=== PATIENT | female | born 1985 | race Caucasian/White ===

== ENCOUNTER 2017-07-17 10:00 | Outpatient (RCR) | payer OTHER, SELFPAY | END 2017-07-17 10:01 | LOC: DC 10:00 | PROVIDERS: Family Provider Family Medicine; PCP Family Medicine; Visit Provider Obstetrics & Gynecology | DX: O24.410 Gestational diabetes mellitus in pregnancy, diet controlled (principal); Z71.3 Dietary counseling and surveillance | CPT/HCPCS: 97802; G0108 ==

== ENCOUNTER 2017-07-26 11:05 | Outpatient (CLI) | payer OTHER, SELFPAY ==
[2017-07-26 11:14] VITALS: BMI 40.5
[2017-07-26 11:52] LABS: Hematocrit 35.5 % (37-47); Hemoglobin 11.9 g/dl (12.0-15.0); Mean Corp Hgb Conc 33.5 g/gl (32-36); Mean Corpuscular Hgb 30.1 pg (27.0-32.0); Mean Corpuscular Volume 89.9 fL (81-99); Mean Platelet Vol. 10.2 fl (6.2-12.0); Platelet Count 145 K/mm3 (150-450); RBC Distribution Width CV 14.6 % (11.6-14.6); RBC Distribution Width SD 47.8 fl (35.1-43.9); Red Blood Count 3.95 M/mm3 (4.2-5.4); Scan Indicated on CBC? Y/N NO; White Blood Count 8.8 K/mm3 (4.4-11.0)
[2017-07-26 11:55] LABS: International Normalized Ratio 1.1; Prothrombin Time (Protime)PT. 14.3 SECONDS (11.7-14.9)
[2017-07-26 11:56] LABS: Partial Thromboplast Time 28.8 Seconds (24.1-36.2)
[2017-07-26 12:08] LABS: AST(SGOT) 15 U/L (15-37); Alanine Aminotransfer ALT/SGPT 12 U/L (13-56); Creatinine, Serum 0.72 mg/dL (0.55-1.02); EST Glomerular Filtration Rate 101 mL/min (>60); Est Glom Filt Rate - Afr Amer 122 mL/min (>60); Estimated Creatinine Clearance 105.98 ml/min; Uric Acid 4.5 mg/dL (2.6-6.0)
[2017-07-26 12:09] LABS: Protein, Urine (Random) 19.2 mg/dL (<11.9); Protein:Creat Ratio 132 mg/g CRE (0-200)
[2017-07-26] MEDS: Labetalol 100 MG Tablet PO ×2 (13:39→21:20)
[2017-07-26] MEDS: Betamethasone/Betamethasone 30 MG/5 ML Vial 12 MG IM (13:39)
[2017-07-26 16:51] LABS: Bedside Glucose 145 mg/dL (70-110)
[2017-07-26 16:53] LABS: Group B Strep DNA By PCR Negative (Negative)
[2017-07-26 16:55] LABS: Internal Control PASS; Probe Check PASS; Specimen Processing Control PASS
--- NOTE | 2017-07-26 18:19 | PCM.HP.OB ---
History Date of Admission: 07/26/17 Final [place]: 09/17/17 Final [place] Source: US <20 weeks Gestational age: 32 Weeks and 3 Days History of this : Initiated care @ 8 weeks x 7 visits Elevated blood pressures from baseline noted at last visit on 07/22/17, patient reports continued elevated blood pressures today 130-140s/80-90s Patient antepartum course has been complicated by gestational diabetes that was unable to be controlled by diet alone. Patient recently prescribed NPH insulin q HS to help control blood sugars. Pertinent Past Medical History: Obesity affecting Otherwise history noncontributory Allergies No Known Allergies Allergy (Verified 07/26/17 11:30) Current Medications Aspirin (Aspirin, Baby) 81 mg PO DAILYCM ALBERTO Cholecalciferol (Vitamin D) 2,000 unit PO HS ALBERTO Folic Acid (Folic Acid) 0 mg PO HS [facility] Insulin Human NPH (Humulin N (Bkc)) 10 units SC HS ALBERTO Labetalol HCl (Trandate) 100 mg PO TID [facility] Last Admin: 07/26/17 13:39 Dose: 100 mg Smoking Status: Never smoker Alcohol: None Drug Use: none Number of Fetus(es): 1 Review of Systems Constitutional: Denies: Chills, Fever, Weight Change Eyes: Denies: Vision Change HEENT: Denies: Head Aches, Sinus Congestion, Sinus Drainage Cardiovascular: Denies: Chest Pain, Palpitations Respiratory: Denies: Shortness of breath at rest Gastrointestinal: Denies: Abdominal Pain, Nausea, Vomiting Genitourinary: Denies: Dysuria, Frequency, Urgency Gynecological: Denies: Vaginal bleeding, Vaginal discharge Musculoskeletal: Denies: Joint Pain, Joint Tenderness Skin: Denies: Rash, Wounds Neurological: Denies: Numbness, Tingling, Focal weakness Psychiatric: Denies: Anxiety, Depression, Homicidal Ideations, Suicidal Ideations Hematologic/ Lymphatic: Denies: Easy Bruising, Easy Bleeding Physical Exam Vitals: Initial blood pressure 150/97, 133/100, then most blood pressures initially in 130-140/80-90 range Otherwise VSS, Afebrile Reactive, Category I FHT, no contractions noted on monitor General: Alert, Oriented x3, No apparent distress Cardiovascular: Regular rate, Regular Rhythm Lungs: Clear to auscultation, Normal air movement Abdomen: Soft, Non Tender, Gravid, Appropriate for Gestational Age Extremities:: No edema Estimated gestational size: Appropriate for gestational size Presentation: Cephalic - SVE deferred Assessment/Plan 32 y/o @ 32+ weeks, Gestational Hypertension, R/O Pre-eclampsia - negative pre-eclampsia work-up P: 1) Consult with Dr. Krishna RIVAS re: comanagement of this patient. Recommendation for antepartum admission to evaluate blood pressures overnight, administer steroids, start Labetalol 100mg PO TID now. 2) Anticipate discharge to home tomorrow after 2nd steroid dose and if blood pressures are well controlled on Labetalol medication. Nori Avilez CNM
--- NOTE | 2017-07-26 18:29 | HP.PCM_ITS ---
History Date of Admission: 07/26/17 Final [place]: 09/17/17 Final [place] Source: US <20 weeks Gestational age: 32 Weeks and 3 Days History of this : Initiated care @ 8 weeks x 7 visits Elevated blood pressures from baseline noted at last visit on 07/22/17, patient reports continued elevated blood pressures today 130-140s/80-90s Patient antepartum course has been complicated by gestational diabetes that was unable to be controlled by diet alone. Patient recently prescribed NPH insulin q HS to help control blood sugars. Pertinent Past Medical History: Obesity affecting Otherwise history noncontributory Allergies No Known Allergies Allergy (Verified 07/26/17 11:30) Current Medications Aspirin (Aspirin, Baby) 81 mg PO DAILYCM ALBERTO Cholecalciferol (Vitamin D) 2,000 unit PO HS ALBERTO Folic Acid (Folic Acid) 0 mg PO HS [facility] Insulin Human NPH (Humulin N (Bkc)) 10 units SC HS ALBERTO Labetalol HCl (Trandate) 100 mg PO TID [facility] Last Admin: 07/26/17 13:39 Dose: 100 mg Smoking Status: Never smoker Alcohol: None Drug Use: none Number of Fetus(es): 1 Review of Systems Constitutional: Denies: Chills, Fever, Weight Change Eyes: Denies: Vision Change HEENT: Denies: Head Aches, Sinus Congestion, Sinus Drainage Cardiovascular: Denies: Chest Pain, Palpitations Respiratory: Denies: Shortness of breath at rest Gastrointestinal: Denies: Abdominal Pain, Nausea, Vomiting Genitourinary: Denies: Dysuria, Frequency, Urgency Gynecological: Denies: Vaginal bleeding, Vaginal discharge Musculoskeletal: Denies: Joint Pain, Joint Tenderness Skin: Denies: Rash, Wounds Neurological: Denies: Numbness, Tingling, Focal weakness Psychiatric: Denies: Anxiety, Depression, Homicidal Ideations, Suicidal Ideations Hematologic/ Lymphatic: Denies: Easy Bruising, Easy Bleeding Physical Exam Vitals: Initial blood pressure 150/97, 133/100, then most blood pressures initially in 130-140/80-90 range Otherwise VSS, Afebrile Reactive, Category I FHT, no contractions noted on monitor General: Alert, Oriented x3, No apparent distress Cardiovascular: Regular rate, Regular Rhythm Lungs: Clear to auscultation, Normal air movement Abdomen: Soft, Non Tender, Gravid, Appropriate for Gestational Age Extremities:: No edema Estimated gestational size: Appropriate for gestational size Presentation: Cephalic - SVE deferred Assessment/Plan 32 y/o @ 32+ weeks, Gestational Hypertension, R/O Pre-eclampsia - negative pre-eclampsia work-up P: 1) Consult with Dr. Krishna RIVAS re: comanagement of this patient. Recommendation for antepartum admission to evaluate blood pressures overnight, administer steroids, start Labetalol 100mg PO TID now. 2) Anticipate discharge to home tomorrow after 2nd steroid dose and if blood pressures are well controlled on Labetalol medication. Nori Avilez CNM
[2017-07-26 19:55] LABS: Bedside Glucose 193 mg/dL (70-110)
--- NOTE | 2017-07-26 20:40 | PCM.PN.BLA ---
Progress Note Patient denies RICE, visual changes or epigastric pain. Good FM/ Reviewed w/ her reasoning for trt of bp and monitoring for preeclampsia and severe symptoms Will cover elevated bs w/ regular insulin and increase NPH in short term has US and f/u for next week finish BMZ course Seen and examine and agree H&P
[2017-07-26] MEDS: Aspirin 81 MG TAB.CHEW PO (21:20)
[2017-07-26] MEDS: Insulin NPH Human 100 UNITS/ML PEN 14 UNITS SC (21:23)
[2017-07-26 23:36] LABS: Bedside Glucose 124 mg/dL (70-110)
[2017-07-27] MEDS: Labetalol 100 MG Tablet PO ×2 (05:30→13:39)
[2017-07-27 05:55] LABS: Bedside Glucose 128 mg/dL (70-110)
[2017-07-27 06:04] LABS: Hematocrit 33.9 % (37-47); Hemoglobin 11.4 g/dl (12.0-15.0); Mean Corp Hgb Conc 33.6 g/gl (32-36); Mean Corpuscular Hgb 30.4 pg (27.0-32.0); Mean Corpuscular Volume 90.4 fL (81-99); Mean Platelet Vol. 9.5 fl (6.2-12.0); Platelet Count 140 K/mm3 (150-450); RBC Distribution Width CV 14.6 % (11.6-14.6); RBC Distribution Width SD 47.9 fl (35.1-43.9); Red Blood Count 3.75 M/mm3 (4.2-5.4); White Blood Count 9.7 K/mm3 (4.4-11.0)
[2017-07-27 06:11] LABS: Scan Indicated on CBC? Y/N NO
[2017-07-27] MEDS: Insulin NPH Human 100 UNITS/ML PEN 6 UNITS SC (09:30)
--- NOTE | 2017-07-27 10:11 | PCM.PN.BLA ---
Progress Note S: Patient sitting up in bed at this time. Denies any issues or complaints. Denies RICE, scotoma or RUQ. Second steroid injection dose ordered for patient to receive in anticipation of her discharge home later today. O: BP stable - 124/74 last checked, normotensive through the night Fasting blood sugar = 128 this morning, 6 units R and 6 units NPH insulin administered per orders from Dr. Keller A+O x 3, NAD. PERRLA, EOMs intact No abdominal tenderness to palpation +2/4 reflexes in LE, no edema, no clonus noted FHT baseline 130, moderate variability, +accels, no decels Ctx irregular q5-10 minutes on tocometer, not palpable and patient does not feel any ctx SVE deferred A: 32 y/o @ 32+ weeks, GHTN, GDMA2 P: 1) Normotensive blood pressures, anticipate discharge to home on labetalol medication 2) Blood sugars slightly elevated this hospitalization likely secondary to celestone steroid shots - insulin being managed by Dr. Krishna RIVAS 3) 2nd dose Celestone due at 1339 4) Anticipate discharge to home today Nori Avilez CNM
[2017-07-27 10:21] LABS: Bedside Glucose 142 mg/dL (70-110)
--- NOTE | 2017-07-27 11:11 | PCM.PN.BLA ---
Progress Note Denies RICE, visual changes or epigastric pain. Good Fm. Minimal occas. edema PE- awake, alert, NAD, BP stable trace edema, 2+ DTRs, no clonus abdo- soft, nontender, gravid a/p 32 YOF @ 32 4/7 weeks gestation, gest HTN BP stable GDM A2- bs will trend a little high. D /w her management in short term. Call office or page physician promotion manager prn for persistent elevated bp or BS > 200 Second dose of BMZ today d/c home after that reviewed symptoms/signs of preeclampsia w/ severe features
--- NOTE | 2017-07-27 11:14 | PN_ITS ---
Progress Note Denies RICE, visual changes or epigastric pain. Good Fm. Minimal occas. edema PE- awake, alert, NAD, BP stable trace edema, 2+ DTRs, no clonus abdo- soft, nontender, gravid a/p 32 YOF @ 32 4/7 weeks gestation, gest HTN BP stable GDM A2- bs will trend a little high. D /w her management in short term. Call office or page physician client relationship manager prn for persistent elevated bp or BS > 200 Second dose of BMZ today d/c home after that reviewed symptoms/signs of preeclampsia w/ severe features
[2017-07-27] MEDS: Betamethasone/Betamethasone 30 MG/5 ML Vial 12 MG IM (13:38)
[2017-07-27 14:06] LABS: Bedside Glucose 113 mg/dL (70-110)
== END 2017-07-27 14:22 | disposition home or self-care (01) ==
LOC: WPOUT 11:13 → WP 07-28 12:27
PROVIDERS: Obstetrics & Gynecology; Family Provider Family Medicine; PCP Family Medicine; Visit Provider Advanced Practice Midwife
DX: O13.3 Gestational [pregnancy-induced] hypertension without significant proteinuria, third trimester (principal); O99.213 Obesity complicating pregnancy, third trimester; E66.9 Obesity, unspecified; O24.419 Gestational diabetes mellitus in pregnancy, unspecified control; Z3A.32 32 weeks gestation of pregnancy
CPT/HCPCS: 36415; 59025; 59050; 82565; 82570; 82962; 84156; 84450; 84460; 84550; 85027; 85610; 85730; 87081; 87653; 96372; 99218; G0378; J0702

== ENCOUNTER 2017-08-06 10:40 | Outpatient (CLI) | payer OTHER, SELFPAY ==
[2017-08-06 10:54] VITALS: BMI 39.5
[2017-08-06 11:30] LABS: Hematocrit 36.1 % (37-47); Hemoglobin 12.1 g/dl (12.0-15.0); Mean Corp Hgb Conc 33.5 g/gl (32-36); Mean Corpuscular Hgb 30.3 pg (27.0-32.0); Mean Corpuscular Volume 90.3 fL (81-99); Mean Platelet Vol. 9.2 fl (6.2-12.0); Platelet Count 164 K/mm3 (150-450); RBC Distribution Width CV 14.4 % (11.6-14.6); RBC Distribution Width SD 46.7 fl (35.1-43.9); Scan Indicated on CBC? Y/N NO; White Blood Count 9.3 K/mm3 (4.4-11.0)
[2017-08-06 11:33] LABS: Protein:Creat Ratio 214 mg/g CRE (0-200)
[2017-08-06 11:42] LABS: ALB/GLOB Ratio 0.7 RATIO (0.9-2.4); AST(SGOT) 11 U/L (15-37); Alanine Aminotransfer ALT/SGPT 13 U/L (13-56); Albumin, Serum 2.7 g/dL (3.2-5.0); Alkaline Phosphatase 100 U/L (45-117); Anion Gap 10 (5-15); BUN 12 mg/dL (7-18); BUN/Creat Ratio 19.5 RATIO (10-20); Calcium,Total 8.2 mg/dL (8.5-10.1); Chloride 110 mmol/L (98-107); Creatinine, Serum 0.62 mg/dL (0.55-1.02); EST Glomerular Filtration Rate 120 mL/min (>60); Est Glom Filt Rate - Afr Amer 145 mL/min (>60); Estimated Creatinine Clearance 123.08 ml/min; Globulin 3.8 g/dL (2.2-4.2); Glucose 106 mg/dL (74-106); Protein, Total 6.5 g/dL (6.4-8.2); Sodium Level 142 mmol/L (136-145)
--- NOTE | 2017-08-08 11:20 | OB.TRI.NOTE ---
History of Present Illness Date of Service: 08/06/17 Reason For Visit: [facility] Date of Service: 08/06/17 Final [place]: 09/17/17 Gestational age: 34 w 0 d History of Present Illness: 32 YOF seen by me in the office on 08/06 w/ known h/o gest HTN sent for eval for poss. preeclampsia. Home Medications Medication Instructions Recorded Aspirin, Baby 81 mg PO DAILY 07/26/17 Cholecalciferol (Vitamin D3) 2,000 unit PO DAILY 07/26/17 [Vitamin D3] Folic Acid 0.8 mg PO DAILY 07/26/17 Vitamins 1 tab PO DAILY 07/26/17 Insulin NPH Human Isophane 10 units SC QHS 08/06/17 [Novolin N] Labetalol 200 mg PO TID 08/06/17 Allergies No Known Allergies Allergy (Verified 08/06/17 10:55) NST - FHR Rate Baby A Baseline: 145 bpm Variability:: Moderate Accelerations:: 15 x 15 Decelerations:: None NST Reactive:: Yes FHR Category:: Category I Uterine Activity:: no ctxs Impression/Plan 32 YOF high risk primigravida at 34w 0 d gest HTN- bp well controlled on increased labetalol, she is to f/u in our office closely, kick counts. Call or return for symptoms/signs of preeclampsia GDM A2- controlled on current insulin dose d/c home w/ f/u in our office in 2 days or prn
--- NOTE | 2017-08-08 11:23 | OB.TRI.HP_ITS ---
History of Present Illness Date of Service: 08/06/17 Reason For Visit: [facility] Date of Service: 08/06/17 Final [place]: 09/17/17 Gestational age: 34 w 0 d History of Present Illness: 32 YOF seen by me in the office on 08/06 w/ known h/o gest HTN sent for eval for poss. preeclampsia. Home Medications Medication Instructions Recorded Aspirin, Baby 81 mg PO DAILY 07/26/17 Cholecalciferol (Vitamin D3) 2,000 unit PO DAILY 07/26/17 [Vitamin D3] Folic Acid 0.8 mg PO DAILY 07/26/17 Vitamins 1 tab PO DAILY 07/26/17 Insulin NPH Human Isophane 10 units SC QHS 08/06/17 [Novolin N] Labetalol 200 mg PO TID 08/06/17 Allergies No Known Allergies Allergy (Verified 08/06/17 10:55) NST - FHR Rate Baby A Baseline: 145 bpm Variability:: Moderate Accelerations:: 15 x 15 Decelerations:: None NST Reactive:: Yes FHR Category:: Category I Uterine Activity:: no ctxs Impression/Plan 32 YOF high risk primigravida at 34w 0 d gest HTN- bp well controlled on increased labetalol, she is to f/u in our office closely, kick counts. Call or return for symptoms/signs of preeclampsia GDM A2- controlled on current insulin dose d/c home w/ f/u in our office in 2 days or prn
== END 2017-08-06 12:15 | disposition home or self-care (01) ==
LOC: WPOUT 10:46 → WP 10:47
PROVIDERS: Family Provider Family Medicine; PCP Family Medicine; Visit Provider Obstetrics & Gynecology
DX: O13.3 Gestational [pregnancy-induced] hypertension without significant proteinuria, third trimester (principal); O24.414 Gestational diabetes mellitus in pregnancy, insulin controlled; Z3A.34 34 weeks gestation of pregnancy
CPT/HCPCS: 36415; 59025; 59050; 80053; 82570; 84156; 85027; 86850; 86900; 99218; G0378

== ENCOUNTER 2017-08-16 19:25 | Outpatient (CLI) | payer OTHER, SELFPAY ==
[2017-08-16 20:05] VITALS: BMI 39.8
[2017-08-16] MEDS: 0.9% Saline Lock 10 ML Syringe IV (20:05)
[2017-08-16 20:29] LABS: Hematocrit 34.3 % (37-47); Hemoglobin 11.4 g/dl (12.0-15.0); Mean Corp Hgb Conc 33.2 g/gl (32-36); Mean Corpuscular Hgb 30.1 pg (27.0-32.0); Mean Corpuscular Volume 90.5 fL (81-99); Mean Platelet Vol. 9.9 fl (6.2-12.0); Platelet Count 142 K/mm3 (150-450); RBC Distribution Width CV 15.5 % (11.6-14.6); RBC Distribution Width SD 50.4 fl (35.1-43.9); Red Blood Count 3.79 M/mm3 (4.2-5.4); White Blood Count 7.1 K/mm3 (4.4-11.0)
[2017-08-16 20:30] LABS: Scan Indicated on CBC? Y/N NO
[2017-08-16 20:31] LABS: Bedside Glucose 101 mg/dL (70-110)
[2017-08-16 20:35] LABS: Prothrombin Time (Protime)PT. 13.2 SECONDS (11.7-14.9)
[2017-08-16 20:36] LABS: Partial Thromboplast Time 29.7 Seconds (24.1-36.2)
[2017-08-16 20:41] LABS: AST(SGOT) 17 U/L (15-37); Alanine Aminotransfer ALT/SGPT 23 U/L (13-56); Creatinine, Serum 1.01 mg/dL (0.55-1.02); EST Glomerular Filtration Rate 68 mL/min (>60); Est Glom Filt Rate - Afr Amer 82 mL/min (>60)
[2017-08-16 20:45] LABS: Protein, Urine (Random) 20.5 mg/dL (<11.9); Protein:Creat Ratio 102 mg/g CRE (0-200)
[2017-08-16 21:30] VITALS: RESP 18
--- NOTE | 2017-08-17 07:23 | OB.TRI.NOTE ---
History of Present Illness Date of Service: 08/17/17 Was patient seen by the physician?: No Reason For Visit: RULE OUT PRE ECLAMPSIA Date of Service: 08/16/17 Final [place]: 09/17/17 Final [place] Source: US <20 weeks Gestational age: 35 Weeks and 4 Days History of Present Illness: Patient monitors her blood pressure at home. She foamy with persistently elevated blood pressures despite taking her normal labetalol. She had some slight visual changes in the morning but none in the afternoon. She denied any persistent headache or epigastric pain. She had good movement. She reported some irregular contractions. I instructed her to come to labor and delivery for evaluation. Home Medications Medication Instructions Recorded Aspirin, Baby 81 mg PO DAILY 07/26/17 Cholecalciferol (Vitamin D3) 2,000 unit PO DAILY 07/26/17 [Vitamin D3] Folic Acid 0.8 mg PO DAILY 07/26/17 Vitamins 1 tab PO DAILY 07/26/17 Insulin NPH Human Isophane 14 units SC QHS 08/06/17 [Novolin N] Labetalol 200 mg PO TID 08/06/17 Insulin Aspart [Novolog] 6 unit SQ DAILY 08/16/17 Allergies No Known Allergies Allergy (Verified 08/16/17 20:35) - Pertinent Past Medical History Pertinent Past Medical History: GDMA2 chronic HTN anxiety Physical Exam Vitals: Vital Signs Resp 18 08/16/17 21:30 NST - FHR Rate Baby A Baseline: 140 bpm Variability:: Moderate Accelerations:: 15 x 15 Decelerations:: None NST Reactive:: Yes FHR Category:: Category I Uterine Activity:: irreg ctxs Impression/Plan 32 YOF high risk primigravida with gestational HTN w/o evidence of preeclampsia Home w/ labor and preeclampsia precautions kick counts cont. labetalol, insulin and monitor BPS f/u in my office in 3-4 days or prn
== END 2017-08-16 21:30 | disposition home or self-care (01) ==
LOC: WPOUT 19:32 → WP 19:33
PROVIDERS: Family Provider Family Medicine; PCP Family Medicine; Visit Provider Obstetrics & Gynecology
DX: O13.3 Gestational [pregnancy-induced] hypertension without significant proteinuria, third trimester (principal); Z3A.35 35 weeks gestation of pregnancy
CPT/HCPCS: 36415; 59025; 59050; 82565; 82570; 82962; 84156; 84450; 84460; 84550; 85027; 85610; 85730; 99218; A4216; G0378

== ENCOUNTER 2017-08-19 12:00 | Outpatient (CLI) | payer OTHER, SELFPAY ==
[2017-08-19] MEDS: 0.9% NaCl Peripheral Flush Adult/Peds IV (12:30)
[2017-08-19 13:09] LABS: Hematocrit 36.2 % (37-47); Hemoglobin 12.1 g/dl (12.0-15.0); Mean Corp Hgb Conc 33.4 g/gl (32-36); Mean Corpuscular Hgb 30.1 pg (27.0-32.0); Mean Platelet Vol. 10.1 fl (6.2-12.0); Platelet Count 158 K/mm3 (150-450); RBC Distribution Width CV 15.6 % (11.6-14.6); RBC Distribution Width SD 50.9 fl (35.1-43.9); Red Blood Count 4.02 M/mm3 (4.2-5.4); White Blood Count 8.8 K/mm3 (4.4-11.0)
[2017-08-19 13:10] LABS: Scan Indicated on CBC? Y/N NO
[2017-08-19 13:24] LABS: ALB/GLOB Ratio 0.7 RATIO (0.9-2.4); AST(SGOT) 17 U/L (15-37); Alanine Aminotransfer ALT/SGPT 19 U/L (13-56); Albumin, Serum 2.6 g/dL (3.2-5.0); Alkaline Phosphatase 112 U/L (45-117); Anion Gap 8 (5-15); BUN 16 mg/dL (7-18); BUN/Creat Ratio 22.7 RATIO (10-20); Calcium,Total 8.3 mg/dL (8.5-10.1); Chloride 109 mmol/L (98-107); Creatinine, Serum 0.71 mg/dL (0.55-1.02); EST Glomerular Filtration Rate 103 mL/min (>60); Est Glom Filt Rate - Afr Amer 124 mL/min (>60); Globulin 3.8 g/dL (2.2-4.2); Glucose 68 mg/dL (74-106); Potassium 4.2 mmol/L (3.5-5.1); Protein, Total 6.4 g/dL (6.4-8.2); Sodium Level 139 mmol/L (136-145); Uric Acid 4.7 mg/dL (2.6-6.0)
[2017-08-19 13:26] VITALS: BMI 39.9
[2017-08-19 13:45] LABS: Protein, Urine (Random) 17.7 mg/dL (<11.9); Protein:Creat Ratio 145 mg/g CRE (0-200)
[2017-08-19] MEDS: Labetalol 200 MG Tablet PO (15:49)
--- NOTE | 2017-08-19 17:11 | OB.TRI.NOTE ---
History of Present Illness Date of Service: 08/19/17 Was patient seen by the physician?: Yes Reason For Visit: R/O PHI Date of Service: 08/19/17 Final [place]: 09/17/17 Final [place] Source: US <20 weeks Gestational age: 35 Weeks and 6 Days History of Present Illness: 32-year-old 1 para 0 at 35-6/7 weeks gestation presents from the office for elevated blood pressures. Denies any persistent headache or visual changes. States her blood pressure has been trending up slowly at home and over the past few days she is gotten 130s-140s over 80s to low 90s. She had a biophysical profile in the office today as well as an estimated weight that showed propria for gestational age fetus. BPP was 8 out of 8. Home Medications Medication Instructions Recorded Aspirin, Baby 81 mg PO DAILY 07/26/17 Cholecalciferol (Vitamin D3) 2,000 unit PO DAILY 07/26/17 [Vitamin D3] Folic Acid 0.8 mg PO DAILY 07/26/17 Vitamins 1 tab PO DAILY 07/26/17 Insulin NPH Human Isophane 14 units SC QHS 08/06/17 [Novolin N] Labetalol 200 mg PO TID 08/06/17 Insulin Aspart [Novolog] 6 unit SQ DAILY 08/16/17 Allergies No Known Allergies Allergy (Verified 08/16/17 20:35) Physical Exam General: Alert, Cooperative, No apparent distress Abdomen: Soft, Non Tender, Non-Distended, Gravid, Appropriate for Gestational Age Extremities:: Other - edema 1+, 2+ dtrS, NO CLONUS Presentation: Cephalic NST - FHR Rate Baby A Baseline: 145 bpm Variability:: Moderate Accelerations:: 15 x 15 Decelerations:: None NST Reactive:: Yes, Appropriate for gestational age FHR Category:: Category I Uterine Activity:: quiet Impression/Plan 32-year-old high risk primigravida female at 35-6/7 weeks gestation. Hypertension. Blood pressures are stable. Continue home labetalol. No evidence of preeclampsia at this time. Will follow patient closely and recommend induction at 37 weeks. Risks benefits and alternatives to induction were discussed with the patient and consent was signed. Stational diabetes class A2. Continue current insulin regimen. In my office in 2-3 days or as needed.
== END 2017-08-19 16:40 | disposition home or self-care (01) ==
LOC: WPOUT 12:10 → WP 12:11
PROVIDERS: Family Provider Family Medicine; PCP Family Medicine; Visit Provider Obstetrics & Gynecology
DX: O16.3 Unspecified maternal hypertension, third trimester (principal); Z3A.35 35 weeks gestation of pregnancy
CPT/HCPCS: 36415; 59025; 80053; 82570; 84156; 84550; 85027; 86850; 86900; 99218; A4216; G0378

== ENCOUNTER 2017-08-26 18:56 | Inpatient (IN) | payer OTHER, SELFPAY ==
[2017-08-26 19:35] LABS: Bedside Glucose 134 mg/dL (70-110)
[2017-08-26] MEDS: Lactated Ringers 1,000 ML 50 ML IV ×2 (19:44→23:51)
[2017-08-26 20:00] VITALS: BMI 40.5
[2017-08-26] MEDS: miSOPROStol 25 MCG TABLET PO (20:29)
[2017-08-26] MEDS: Labetalol 200 MG Tablet PO (20:29)
[2017-08-26 20:30] LABS: Hematocrit 34.2 % (37-47); Hemoglobin 11.6 g/dl (12.0-15.0); Mean Corp Hgb Conc 33.9 g/gl (32-36); Mean Corpuscular Hgb 30.2 pg (27.0-32.0); Mean Corpuscular Volume 89.1 fL (81-99); Mean Platelet Vol. 9.7 fl (6.2-12.0); Platelet Count 172 K/mm3 (150-450); RBC Distribution Width CV 15.6 % (11.6-14.6); RBC Distribution Width SD 50.3 fl (35.1-43.9); Red Blood Count 3.84 M/mm3 (4.2-5.4); Scan Indicated on CBC? Y/N NO; White Blood Count 8.6 K/mm3 (4.4-11.0)
[2017-08-26 20:55] LABS: Bedside Glucose 144 mg/dL (70-110)
[2017-08-26] MEDS: Lactated Ringers 1,000 ML 15 ML IV (21:35)
[2017-08-26] MEDS: Dext 5%-0.45% NS 1,000 ML 125 ML IV (21:35)
[2017-08-26 21:46] LABS: Bedside Glucose 158 mg/dL (70-110)
[2017-08-26 22:56] LABS: Bedside Glucose 100 mg/dL (70-110)
[2017-08-26 23:51] LABS: Bedside Glucose 85 mg/dL (70-110)
--- NOTE | 2017-08-27 | PLAC_PTH ---
PATIENT: NIKOLE MONTANO LOC: [facility] U#:[id number] AGE/SX: 32/F ROOM: WP018 RE08/26/[address]: Dr. Rani Keller MD : [id number] BED: 1 DIS: 08/29/2017 SPEC #: [id number] RECD: 08/28/17 09:00 STATUS: OLY ALEXANDER #: [id number] OPAL: 08/27/17 00:[address]: Rani Keller DEPT: SURGICAL PATHOLOGY RECD BY: Oliver Patterson ENTERED: 08/28/17 09:00 SP TYPE: PLACENTA OTHR DR: Dr. Rudi Abarca, Tissues: Placenta, NOS Procedures: Surgery Specimen Level V HEADER OPERATION: Vaginal delivery PRE-OP DIAGNOSIS: Gestational hypertension TISSUE SUBMITTED: Placenta MICROSCOPIC DIAGNOSIS Placenta: Placental disc - third trimester placenta (510 gm). - Increased intervillous and perivillous fibrin deposition with focal area of infarction. Membranes - no pathologic diagnosis. Umbilical cord - three blood vessels and no pathologic diagnosis. SJ:rg 08/29/17 COMMENT Case has been reviewed in consultation with Dr. Castellano who concurs with the above diagnosis. IDC:AM MICROSCOPIC DESCRIPTION Slides are reviewed. GROSS DESCRIPTION SPECIMEN: PLACENTA / CLINICAL INFORMATION: A. Weight: 2.726 kg B. Gestational Age: 37 weeks C. Sex: Female PLACENTAL WEIGHT (POST FIXATION): 510 gm PLACENTAL DIMENSIONS: 17 x 14 x 3 cm PLACENTAL SHAPE: Usual ovoid PLACENTAL WEIGHT FOR GESTATIONAL AGE: Within 10-99th percentile MEMBRANES - Present A. Insertion: Marginal B. Site of rupture from edge: At edge of placental disc C. Color of membrane: Hirsch-choi D. Abnormalities: None UMBILICAL CORD ? Present, received in two fragments A. Color: Hirsch-choi B. Insertion: Eccentric C. Length: 22 cm D. Diameter: 1.5 cm E. Number of vessels: Three F. Abnormalities: None PLACENTAL DISC - Present A. Color of surface: Hirsch-choi B. surface abnormalities: None C. Maternal cotyledons: Intact with minimal tears D. Attached retro placental clot: No clot E. Cut surface: Dark red and spongy F. Lesions: None G. Separate clot: Absent SECTIONS SUBMITTED: 1. Membrane roll and umbilical cord ( end notched) 2. Placental disc, and maternal surfaces 3. Placental disc, and maternal surfaces 4. Placental disc, and maternal surfaces AM:izabel 08/28/17 More sections are submitted in three more cassettes, placental disc including maternal and surfaces. / SJ:izabel 08/29/17 TC:5 CPT: 90018
[2017-08-27 00:41] LABS: Bedside Glucose 65 mg/dL (70-110)
[2017-08-27] MEDS: miSOPROStol 25 MCG TABLET PO ×2 (00:43→05:04)
[2017-08-27 04:45] LABS: Bedside Glucose 76 mg/dL (70-110)
[2017-08-27] MEDS: Labetalol 200 MG Tablet PO ×3 (05:57→22:09)
--- NOTE | 2017-08-27 08:05 | PCM.HP.OB ---
History Date of Admission: 08/26/17 Final [place]: 09/17/17 Final [place] Source: US <20 weeks Gestational age: 37 Weeks and 0 Days History of this : @ 37 weeks with GDMA2 on insulin and Gest HTN on labetalol. pt here for IOL. pt offers no concerns today. pt is dated by her LMP c/w first trimester. Allergies No Known Allergies Allergy (Verified 08/26/17 19:57) Current Medications Acetaminophen (Tylenol) 325 - 650 mg PO Q4H PRN PRN PRN Reason: PAIN OR FEVER >100.4F Al Hydroxide/Mg Hydroxide (Mylanta Ii) 15 - 30 ml PO Q4H PRN PRN PRN Reason: INDIGESTION Citric Acid/Sodium Citrate (Bicitra) 30 ml PO UD PRN Dextrose (D50w Syringe) 0 gm IV X1 PRN; Protocol PRN Reason: Hypoglycemia Glucagon () 1 mg IM .X1 PRN PRN Reason: Hypoglycemia Lactated Ringer's () 1,000 mls @ 50 mls/hr IV .Q20H [facility] Last Admin: 08/26/17 23:51 Dose: 50 mls/hr Dextrose/Sodium Chloride () 1,000 mls @ 125 mls/hr IV .Q8H [facility] Last Admin: 08/27/17 05:05 Dose: Not Given Insulin Aspart 100 unit/ (Sodium Chloride) 100 mls @ 1 mls/hr CONT INF .Q100H ALBERTO; 1 UNIT/HR PRN Reason: Protocol Last Admin: 08/26/17 21:35 Dose: 1 mls/hr Lactated Ringer's () 1,000 mls @ 15 mls/hr IV .Q48H [facility] Last Admin: 08/26/17 21:35 Dose: 15 mls/hr Labetalol HCl (Trandate) 200 mg PO TID [facility] Last Admin: 08/27/17 05:57 Dose: 200 mg Misoprostol (Cytotec) 25 mcg PO Q4H [facility] Stop: 08/27/17 16:26 Last Admin: 08/27/17 05:04 Dose: 25 mcg Nalbuphine HCl (Nubain) 5 - 10 mg IV Q3H PRN PRN PRN Reason: PAIN (4-10/10) Ondansetron HCl (Zofran) 4 mg IV Q8H PRN PRN PRN Reason: NAUSEA Promethazine HCl (Phenergan) 6.25 - 12.5 mg IV Q4H PRN PRN; Protocol PRN Reason: IF NAUSEA PERSISTS Sodium Chloride () 5 - 15 ml IV UD [facility] Last Admin: 08/26/17 21:18 Dose: Not Given Smoking Status: Never smoker Alcohol: None Drug Use: none Number of Fetus(es): 1 Review of Systems Cardiovascular: Denies: Chest Pain Gastrointestinal: Denies: Abdominal Pain Physical Exam General: Alert, Oriented x3 Abdomen: Soft, Gravid Estimated gestational size: Appropriate for gestational size Presentation: Cephalic Cervix Dilation (cm): 0.5 Station: -3 Effacement (%): 0 Assessment/Plan 32yo @ 37 wks, GHTN and GDMA2 on insluin for IOL 1) cytotec given overnight 2) evans bulb and pitocin started 3) pain mgmt 4) insulin drip per protocol 5) Labetalol 200mg TID 6) GBS negative
--- NOTE | 2017-08-27 08:09 | HP.PCM_ITS ---
History Date of Admission: 08/26/17 Final [place]: 09/17/17 Final [place] Source: US <20 weeks Gestational age: 37 Weeks and 0 Days History of this : @ 37 weeks with GDMA2 on insulin and Gest HTN on labetalol. pt here for IOL. pt offers no concerns today. pt is dated by her LMP c/w first trimester. Allergies No Known Allergies Allergy (Verified 08/26/17 19:57) Current Medications Acetaminophen (Tylenol) 325 - 650 mg PO Q4H PRN PRN PRN Reason: PAIN OR FEVER >100.4F Al Hydroxide/Mg Hydroxide (Mylanta Ii) 15 - 30 ml PO Q4H PRN PRN PRN Reason: INDIGESTION Citric Acid/Sodium Citrate (Bicitra) 30 ml PO UD PRN Dextrose (D50w Syringe) 0 gm IV X1 PRN; Protocol PRN Reason: Hypoglycemia Glucagon () 1 mg IM .X1 PRN PRN Reason: Hypoglycemia Lactated Ringer's () 1,000 mls @ 50 mls/hr IV .Q20H [facility] Last Admin: 08/26/17 23:51 Dose: 50 mls/hr Dextrose/Sodium Chloride () 1,000 mls @ 125 mls/hr IV .Q8H [facility] Last Admin: 08/27/17 05:05 Dose: Not Given Insulin Aspart 100 unit/ (Sodium Chloride) 100 mls @ 1 mls/hr CONT INF .Q100H [facility]; 1 UNIT/HR PRN Reason: Protocol Last Admin: 08/26/17 21:35 Dose: 1 mls/hr Lactated Ringer's () 1,000 mls @ 15 mls/hr IV .Q48H [facility] Last Admin: 08/26/17 21:35 Dose: 15 mls/hr Labetalol HCl (Trandate) 200 mg PO TID [facility] Last Admin: 08/27/17 05:57 Dose: 200 mg Misoprostol (Cytotec) 25 mcg PO Q4H [facility] Stop: 08/27/17 16:26 Last Admin: 08/27/17 05:04 Dose: 25 mcg Nalbuphine HCl (Nubain) 5 - 10 mg IV Q3H PRN PRN PRN Reason: PAIN (4-10/10) Ondansetron HCl (Zofran) 4 mg IV Q8H PRN PRN PRN Reason: NAUSEA Promethazine HCl (Phenergan) 6.25 - 12.5 mg IV Q4H PRN PRN; Protocol PRN Reason: IF NAUSEA PERSISTS Sodium Chloride () 5 - 15 ml IV UD [facility] Last Admin: 08/26/17 21:18 Dose: Not Given Smoking Status: Never smoker Alcohol: None Drug Use: none Number of Fetus(es): 1 Review of Systems Cardiovascular: Denies: Chest Pain Gastrointestinal: Denies: Abdominal Pain Physical Exam General: Alert, Oriented x3 Abdomen: Soft, Gravid Estimated gestational size: Appropriate for gestational size Presentation: Cephalic Cervix Dilation (cm): 0.5 Station: -3 Effacement (%): 0 Assessment/Plan 32yo @ 37 wks, GHTN and GDMA2 on insluin for IOL 1) cytotec given overnight 2) evans bulb and pitocin started 3) pain mgmt 4) insulin drip per protocol 5) Labetalol 200mg TID 6) GBS negative
--- NOTE | 2017-08-27 08:16 | PCM.PN.OB ---
Subjective: pt seen at bedside, had severe pain last night that required IV Dilaudid. pt reports today pain present but improving. no other concerns today. - Physical Exam General: Alert, Oriented x3 Extremities: - - back, mild CVA tenderness bilaterally. Weight: 113.852 kg Body Mass Index (BMI) 40.5 Laboratory Tests Past 24 Hrs 08/26/17 08/26/17 19:44 19:44 WBC 8.6 RBC 3.84 L Hgb 11.6 L Hct 34.2 L MCV 89.1 MCH 30.2 MCHC 33.9 RDW 15.6 H RDW Differential 50.3 H Plt Count 172 MPV 9.7 Blood Type A POSITIVE Antibody Screen NEGATIVE POC Glucose 08/27/17 08/27/17 08/26/17 04:40 00:37 23:40 POC Glucose 76 65 L 85 08/26/17 08/26/17 08/26/17 22:36 21:34 20:48 POC Glucose 100 158 H 144 H 08/26/17 19:32 POC Glucose 134 H Medical Necessity - Tobacco Use Smoking Status: Never smoker Assessment/Plan 32yo @14.4 wk gestation with Pyelonephritis 1) continue ceftriaxone 2) Repeat cbc today at 2pm- consider d/c home if still improving vs one more day of IV abx. reviewed she will need to go home with PO abx daily until delivery 3) renal ultrasound reviewed- normal 4) WBCs trending down 5) afebrile overnight 6) continue IVF 7) pain mgmt
--- NOTE | 2017-08-27 08:47 | PCM.PN.BLA ---
Progress Note Patient not in labor. Will allow breakfast w/ evans in. Start pitocin. Give morning insulin and half dose of NPH to cover. Insulin drip PRN. BP stable 2+ DTRs, no clonus. FHTs category 1.
[2017-08-27] MEDS: Oxytocin 30 units/NS 500 ml 30 UNITS/500 ML IV.SOLN IV (09:00)
[2017-08-27 09:21] LABS: Bedside Glucose 88 mg/dL (70-110)
[2017-08-27] MEDS: Insulin NPH Human 100 UNITS/ML PEN 7 UNITS SC (09:37)
[2017-08-27] MEDS: Lactated Ringers 1,000 ML 50 ML IV ×2 (12:50→16:30)
[2017-08-27 13:21] LABS: Bedside Glucose 80 mg/dL (70-110)
[2017-08-27 14:20] LABS: Bedside Glucose 81 mg/dL (70-110)
[2017-08-27] MEDS: fentaNYL-bupivacaine (epidural) 100 ML BAG EPIDURAL (15:05)
[2017-08-27 15:21] LABS: Bedside Glucose 95 mg/dL (70-110)
--- NOTE | 2017-08-27 15:54 | NURSING ---
Anesthesia delayed in arriving for epidural placement due to code blue in recovery room.
[2017-08-27 16:25] LABS: Bedside Glucose 79 mg/dL (70-110)
[2017-08-27 17:25] LABS: Bedside Glucose 73 mg/dL (70-110)
[2017-08-27] MEDS: Oxytocin 30 units/NS 500 ml 30 UNITS/500 ML IV.SOLN 334 UNITS IV (18:17)
[2017-08-27] MEDS: Oxytocin 30 units/NS 500 ml 30 UNITS/500 ML IV.SOLN 167 UNITS IV (18:47)
--- NOTE | 2017-08-27 18:54 | PCM.OB.VAG ---
Vaginal Delivery Maternal Presentation: Medically Indicated Induction Method of Induction: Pitocin, Fonseca Bulb, Amniotomy, Cytotec Medical Reason for Induction: Gestational Hypertension, - - Gest DM on insulin Amniotic Membrane Rupture Type: Artificial Amniotic Fluid Description: Clear Final [place]: 09/17/17 Final [place] Source: US <20 weeks Gestational age: 37 Weeks and 0 Days Date of Procedure: 08/27/17 Pre-Operative Diagnosis: Labor Post-Operative Diagnosis: same Surgery/ Procedure Performed: Spontaneous Vaginal Delivery Type of Anesthesia: Epidural Description of Procedure: A vigorous female infant was delivered GRACIELA over a second-degree perineal laceration. The remainder the infant was delivered with maternal pushing and gentle traction only in less than 15 seconds. The Pitocin infusion was initiated for active management of the third stage. The cord was clamped and cut after 1 minute. The infant was attended to by the waiting nursing staff. The placenta was delivered spontaneously and intact. The cervix and vagina were intact. The second-degree perineal laceration was repaired with 3-0 Vicryl suture in a running standard fashion. Sponge and needle counts were correct. A vaginal sweep was completed by me. Presentation: GRACIELA Placental Delivery Description: Spontaneous Placenta Disposition: Sent to Pathology Cord Vessel Description: 3 Vessels Cord Entanglement: None Drain: Fonseca to straight drain Estimated Blood Loss: 300 A gender: Female (1 minute): 8 (5 minute): 9 Episiotomy Description: None Laceration: 2nd degree - perineal Medications given after delivery: IV Pitocin
[2017-08-27 19:05] LABS: Bedside Glucose 80 mg/dL (70-110)
[2017-08-27] MEDS: 0.9% Saline Lock 10 ML Syringe IV (20:00)
[2017-08-27 21:24] VITALS: BP 145/79; PULSE 81; RESP 16; TEMP 36.9; O2SAT 99
[2017-08-27 23:38] VITALS: BP 122/74; PULSE 80; RESP 18; TEMP 36.3
--- NOTE | 2017-08-27 23:58 | NURSING ---
epidural catheter removed @ 2344 ; blue tip intact
[2017-08-28 00:29] LABS: Pathology Specimen OB SEE PATHOLOGY REPORT
[2017-08-28 03:50] VITALS: BP 135/91; PULSE 80; RESP 17; TEMP 36.2
[2017-08-28] MEDS: Labetalol 200 MG Tablet PO ×3 (06:03→21:45)
[2017-08-28 06:25] LABS: Bedside Glucose 84 mg/dL (70-110)
--- NOTE | 2017-08-28 06:40 | PCM.PN.OB ---
Subjective: Patient sitting up in rocking chair at this time bonding with baby. Patient reports no issues or complaints overnight. Patient notes that baby is well, latching without problems. Plans to talk with IBCLC today for additional help and assistance. Per nursing staff, edematous labia minora and majora noted. Fonseca catheter has not been removed due to the swelling. Ice packs in place over night to help reduce swelling. Patient denies any labial pain at this time. Patient continues to take Labetalol 300mg PO TID at this time. Fasting blood sugar this morning in normal range, patient has not required insulin. Objective: Nipples without cracks or blisters Abdomen NT x 4 quadrants, FF midline @ umbilicus +1 labial edema noted, non-pitting. Trace non-pitting edema noted in LE Scant rubra lochia - Physical Exam General: Alert, Oriented x3, Cooperative HEENT: Atraumatic, Normocephalic Neck: Supple Lungs: Clear to auscultation, Normal air movement Cardiovascular: Regular rate, Regular Rhythm, No murmurs Abdomen: Soft, Non Tender, Non-Distended, Passing Flatus Extremities: No edema, Capillary Refill Less than 3 Seconds, No Calf Tenderness Skin: No rashes, No breakdown Musculoskeletal: No Tenderness to Palpation of Joints or Extremities Neurological: Cranial nerves II-XII grossly intact Psych/Mental Status: Normal Affect, Appropriate Vital Signs Temp Pulse Resp BP Pulse Ox 97.2 F L 80 17 135/91 H 99 08/28/17 03:50 08/28/17 03:50 08/28/17 03:50 08/28/17 03:50 08/27/17 21:24 Oxygen Delivery Method Room Air Weight: 251 lb Body Mass Index (BMI) 40.5 Intake and Output for Last 24 Hours 08/26/17 08/27/17 08/28/17 23:59 23:59 23:59 Intake Total 2400 / 2400 Output Total 300 / 300 500 / 500 Balance 2099 / 2099 -500 / -500 POC Glucose 08/28/17 08/27/17 08/27/17 06:02 19:00 17:21 POC Glucose 84 80 73 08/27/17 08/27/17 08/27/17 16:19 15:13 14:15 POC Glucose 79 95 81 08/27/17 08/27/17 12:49 08:50 POC Glucose 80 88 Medical Necessity - Tobacco Use Smoking Status: Never smoker Assessment/Plan A: 32 y/o s/p following IOL for GHTN and GDMA2, PPD #1 P: 1) Continue PP orders at this time 2) Fonseca Catheter to be removed today - encourage continued use of ice packs and Ibuprofen 600mg PO q 6 hours PRN to help decrease swelling and inflammation 3) Anticipate discharge to home tomorrow. Nori Avilez CNM
[2017-08-28] MEDS: Ibuprofen 600 MG Tablet PO ×2 (07:01→21:45)
[2017-08-28 09:00] VITALS: BP 124/79; PULSE 85; RESP 16; TEMP 36.2
[2017-08-28 12:00] VITALS: BP 124/86; PULSE 108; RESP 18; TEMP 36.4
[2017-08-28 16:44] VITALS: BP 121/72; PULSE 76; RESP 16; TEMP 36.4
[2017-08-28 19:40] VITALS: BP 139/83; PULSE 83; RESP 18; TEMP 36.8
[2017-08-29 01:55] VITALS: BP 141/80; PULSE 75; RESP 18; TEMP 36
[2017-08-29] MEDS: Labetalol 200 MG Tablet PO (06:14)
--- NOTE | 2017-08-29 09:02 | DCINST_ITS ---
Discharge Diet: No Restrictions Discharge Activity: Return to Normal Activity, May not drive while taking narcotic pain medications., May Shower May resume sexual activity in: 4-6 weeks Additional Activity Instructions:: Nothing in the vagina for 4-6 weeks. You may return to work/school in 6 weeks. Call your doctor if your incision/area has: Continuous Slow Oozing, Sudden Increased Bleeding, Increased Pain/ Swelling, Increased Redness, Foul Smelling Discharge Additional Instructions: If you experience any of the following, contact your healthcare provider. * Bleeding that soaks a pad every hour for 2 hours * Fever 100.4 or higher * Unrelieved incision or abdominal pain * Swelling, redness, discharge or bleeding from your incision or episiotomy site * Your incision begins to separate * Problems urinating (including inability to urinate or burning while urinating) . * Visual changes * Severe headache * Flu-like symptoms * Pain or redness in one of both of your breasts * Pain, warmth, tenderness or swelling in your legs, especially the calf area * Frequent nausea and vomiting * Symptoms of depression or anxiety If you experience any of the following, call 911 or go to the nearest Emergency Room. * Chest pain * Problems breathing * Seizure activity * Partial or complete paralysis of a body part, slurred speech, weakness or drooping of the face, or a sudden inability to walk or hold your balance Allergies/Adverse Reactions: Allergies No Known Allergies Allergy (Verified 08/26/17 19:57) Medications to take at Discharge Cholecalciferol (Vitamin D3) [Vitamin D3] 2,000 unit PO DAILY 07/26/17 Vitamins 1 tab PO DAILY 07/26/17 Nifedipine [Procardia Xl] 60 mg PO DAILY #30 tab.er.24 08/29/17 The following prescriptions were given: Nifedipine [Procardia Xl] 60 mg PO DAILY #30 tab.er.24 Please Follow Up With: Rani Keller MD - [phone] When: Call to make an appointment with your doctor in 6 weeks. If you had elevated Blood Pressure or 4th degree laceration you will need to be seen in 1 weeks. Primary Care Physician: Rudi Abarca [Primary Care Provider] -
--- NOTE | 2017-08-29 09:02 | PCM.PN.OB ---
Subjective: pain well controlled, average lochia. No RICE or visual changes. - Physical Exam General: Alert, Cooperative, No apparent distress Extremities: Edema - 2+, no clonus Vital Signs Temp Pulse Resp BP Pulse Ox 96.8 F L 75 18 141/80 H 99 08/29/17 01:55 08/29/17 01:55 08/29/17 01:55 08/29/17 01:55 08/27/17 21:24 Oxygen Delivery Method Room Air Weight: 113.852 kg Body Mass Index (BMI) 40.5 Intake and Output for Last 24 Hours 08/27/17 08/28/17 08/29/17 23:59 23:59 23:59 Intake Total 2400 / 2400 Output Total 300 / 300 1949 / 1949 Balance 2099 -1949 Medical Necessity - Tobacco Use Smoking Status: Never smoker Assessment/Plan PPD#2 'doing well bp controlled, no evidence of preeclampsia, will change to nifedipine infant worknig on
[2017-08-29 09:05] VITALS: BP 148/93; PULSE 80; RESP 16; TEMP 36.2
[2017-08-29 09:09] VITALS: BP 144/91
[2017-08-29] MEDS: NIFEdipine 60 MG Tablet PO (10:19)
[2017-08-29 12:43] VITALS: BP 136/83; PULSE 79; RESP 16; TEMP 36.2
== END 2017-08-29 16:00 | disposition home or self-care (01) | DRG 775 ==
PROVIDERS: Admitting Provider Obstetrics & Gynecology; Family Provider Family Medicine; PCP Family Medicine; Visit Provider Obstetrics & Gynecology
DX: O13.4 Gestational [pregnancy-induced] hypertension without significant proteinuria, complicating childbirth (principal); O60.14X0 Preterm labor third trimester with preterm delivery third trimester, not applicable or unspecified; O24.424 Gestational diabetes mellitus in childbirth, insulin controlled; O70.1 Second degree perineal laceration during delivery; Z37.0 Single live birth; Z3A.37 37 weeks gestation of pregnancy; Z79.4 Long term (current) use of insulin
CPT/HCPCS: 59025; 59050; 82962; 85027; 86850; 86900; 88307; 99218; J7050; J7120; A4216; G0378; J7799

== ENCOUNTER 2017-08-30 13:10 | Outpatient (CLI) | payer OTHER, SELFPAY | END 2017-08-30 14:10 | disposition home or self-care (01) | LOC: WPOUT 13:14 → WP 13:14 | PROVIDERS: Family Provider Family Medicine; PCP Family Medicine; Visit Provider Obstetrics & Gynecology | DX: R63.3 Feeding difficulties (principal) | CPT/HCPCS: 96152 ==

== ENCOUNTER 2017-09-03 13:52 | Outpatient (CLI) | payer OTHER, SELFPAY | END 2017-09-03 15:00 | disposition home or self-care (01) | LOC: WPOUT 14:01 → WP 14:01 | PROVIDERS: Family Provider Family Medicine; PCP Family Medicine; Visit Provider Obstetrics & Gynecology | DX: Z39.1 Encounter for care and examination of lactating mother (principal) | CPT/HCPCS: 96152 ==

== ENCOUNTER 2018-11-25 16:57 | Outpatient (RCR) | payer OTHER, SELFPAY | END 2018-12-19 23:59 | LOC: NS 16:57 | PROVIDERS: Family Provider Family Medicine; PCP Family Medicine; Visit Provider Obstetrics & Gynecology | DX: O99.211 Obesity complicating pregnancy, first trimester (principal); O09.299 Supervision of pregnancy with other poor reproductive or obstetric history, unspecified trimester; R73.03 Prediabetes | CPT/HCPCS: 97802 ==

== ENCOUNTER 2018-12-29 11:00 | Outpatient (RCR) | payer OTHER, SELFPAY | END 2018-12-29 23:59 | disposition home or self-care (01) | LOC: NS 11:00 | PROVIDERS: Family Provider Family Medicine; PCP Family Medicine; Visit Provider Obstetrics & Gynecology | DX: O09.299 Supervision of pregnancy with other poor reproductive or obstetric history, unspecified trimester (principal); R73.03 Prediabetes; Z3A.00 Weeks of gestation of pregnancy not specified | CPT/HCPCS: 97803 ==

== ENCOUNTER 2019-05-15 16:03 | Outpatient (CLI) | payer OTHER, SELFPAY ==
[2019-05-15 16:13] VITALS: BMI 41.0
[2019-05-15 16:58] LABS: Hematocrit 33.9 % (37-47); Hemoglobin 11.3 g/dL (12.0-15.0); Mean Corp Hgb Conc 33.3 g/dL (32-36); Mean Corpuscular Hgb 29.8 pg (27.0-32.0); Mean Corpuscular Volume 89.4 fL (81-99); Mean Platelet Vol. 9.7 fl (6.2-12.0); Platelet Count 142 K/mm3 (150-450); RBC Distribution Width CV 14.9 % (11.6-14.6); Red Blood Count 3.79 M/mm3 (4.2-5.4); White Blood Count 10.1 K/mm3 (4.4-11.0)
[2019-05-15 17:09] LABS: International Normalized Ratio 1.1; Partial Thromboplast Time 29.1 Seconds (24.1-36.2); Protein, Urine (Random) < 6.0 mg/dL (<11.9); Protein:Creat Ratio 193 mg/g CRE (0-200); Prothrombin Time (Protime)PT. 13.8 SECONDS (11.7-14.9)
[2019-05-15 17:14] LABS: AST(SGOT) 14 U/L (15-37); Alanine Aminotransfer ALT/SGPT 13 U/L (13-56); Creatinine, Serum 0.62 mg/dL (0.55-1.02); EST Glomerular Filtration Rate 118 mL/min (>60); Est Glom Filt Rate - Afr Amer 143 mL/min (>60); Estimated Creatinine Clearance 120.82 ml/min; Uric Acid 3.9 mg/dL (2.6-6.0)
--- NOTE | 2019-05-15 18:31 | OB.TRI.NOTE ---
History of Present Illness Date of Service: 05/15/19 Was patient seen by the physician?: Yes Reason For Visit: ELEVATED BLOOD PRESSURE Final [place]: 06/13/19 Final [place] Source: US <20 weeks Gestational age: 35 Weeks and 6 Days History of Present Illness: Patient felt off today so checked her BP and it was elevated. Systolic in 140's. She has some intermittent headaches but denies any severe or persistent headache. Also denies blurry vision. Allergies No Known Allergies Allergy (Verified 05/15/19 16:27) Laboratory Studies: Laboratory Tests 05/15/19 05/15/19 05/15/19 Range/Units 16:45 16:45 16:45 WBC (4.4-11.0) K/mm3 RBC (4.2-5.4) M/mm3 Hgb (12.0-15.0) g/dL Hct (37-47) % MCV (81-99) fL MCH (27.0-32.0) pg MCHC (32-36) g/dL RDW Std Deviation (35.1-43.9) fl RDW Coeff of Delfina (11.6-14.6) % Plt Count (150-450) K/mm3 MPV (6.2-12.0) fl PT 13.8 (11.7-14.9) SECONDS INR 1.1 APTT 29.1 (24.1-36.2) Seconds Creatinine 0.62 (0.55-1.02) mg/dL Estim Creat Clear Calc 120.82 ml/min Est GFR (MDRD) Af Amer 143 (>60) mL/min Est GFR (MDRD) Non-Af 118 (>60) mL/min Uric Acid 3.9 (2.6-6.0) mg/dL AST 14 L (15-37) U/L ALT 13 (13-56) U/L U Random Total Protein < 6.0 (<11.9) mg/dL Urine Creatinine 27.00 (NO RANGE EST.) mg/dL Protein/Creatinin Ratio 193 (0-200) mg/g CRE 05/15/19 Range/Units 16:45 WBC 10.1 (4.4-11.0) K/mm3 RBC 3.79 L (4.2-5.4) M/mm3 Hgb 11.3 L (12.0-15.0) g/dL Hct 33.9 L (37-47) % MCV 89.4 (81-99) fL MCH 29.8 (27.0-32.0) pg MCHC 33.3 (32-36) g/dL RDW Std Deviation 48.0 H (35.1-43.9) fl RDW Coeff of Delfina 14.9 H (11.6-14.6) % Plt Count 142 L (150-450) K/mm3 MPV 9.7 (6.2-12.0) fl PT (11.7-14.9) SECONDS INR APTT (24.1-36.2) Seconds Creatinine (0.55-1.02) mg/dL Estim Creat Clear Calc ml/min Est GFR (MDRD) Af Amer (>60) mL/min Est GFR (MDRD) Non-Af (>60) mL/min Uric Acid (2.6-6.0) mg/dL AST (15-37) U/L ALT (13-56) U/L U Random Total Protein (<11.9) mg/dL Urine Creatinine (NO RANGE EST.) mg/dL Protein/Creatinin Ratio (0-200) mg/g CRE NST - FHR Rate Baby A Baseline: 135 Variability:: Moderate Accelerations:: 15 x 15 Decelerations:: Variable Uterine Activity:: Irregular Impression/Plan 34yo female with elevated BP BP's here 115-140/81-92. BP's normal after initial 2 BPs. PreE labs normal Patient to f/u in office Friday or PRN. Reviewed preE precautions.
== END 2019-05-15 18:25 | disposition home or self-care (01) ==
PROVIDERS: PCP Family Medicine; Visit Provider Obstetrics & Gynecology
DX: O26.893 Other specified pregnancy related conditions, third trimester (principal); R03.0 Elevated blood-pressure reading, without diagnosis of hypertension; Z3A.35 35 weeks gestation of pregnancy
CPT/HCPCS: 36415; 59025; 59050; 82565; 82570; 84156; 84450; 84460; 84550; 85027; 85610; 85730; 99218; G0378

== ENCOUNTER 2019-05-30 06:55 | Inpatient (IN) | payer OTHER, SELFPAY ==
[2019-05-30 07:18] VITALS: BMI 42.4
[2019-05-30] MEDS: Lactated Ringers 1,000 ML 50 ML IV (07:35)
[2019-05-30 08:16] LABS: Bedside Glucose 127 mg/dL (70-110)
[2019-05-30 08:25] LABS: Absolute Lymphocyte Count 1.67 X10^3/uL (0.83-4.51); Basophil# 0.01 X10^3/uL; Basophil% 0.1 % (0-1); Eosinophil# 0.01 X10^3/uL; Eosinophils% 0.1 % (0-5); Hematocrit 34.2 % (37-47); Hemoglobin 11.7 g/dL (12.0-15.0); Lymphocyte # 1.67 X10^3/ul (4.0); Lymphocyte % 18.3 % (19-41); Mean Corp Hgb Conc 34.2 g/dL (32-36); Mean Corpuscular Hgb 30.5 pg (27.0-32.0); Mean Corpuscular Volume 89.1 fL (81-99); Mean Platelet Vol. 10.5 fl (6.2-12.0); Monocyte# 0.38 X10^3/uL; Monocyte% 4.2 % (0-10); NRBC Flagged by Analyzer 0 % (0-5); Neutrophil # 6.98 X10^3/uL (2.7-7.7); Neutrophil % 76.6 % (47-70); Platelet Count 156 K/mm3 (150-450); RBC Distribution Width CV 14.6 % (11.6-14.6); RBC Distribution Width SD 46.5 fl (35.1-43.9); Red Blood Count 3.84 M/mm3 (4.2-5.4); White Blood Count 9.1 K/mm3 (4.4-11.0)
[2019-05-30] MEDS: 0.9% Normal Saline Single 100 ML IV.SOLN. IY (08:33)
[2019-05-30] MEDS: Oxytocin 30 units/NS 500 ml 30 UNITS/500 ML IV.SOLN IV (09:10)
[2019-05-30 09:21] LABS: Bedside Glucose 103 mg/dL (70-110)
--- NOTE | 2019-05-30 09:22 | PCM.HP.OB ---
History Date of Admission: 08/26/17 Final [place]: 06/13/19 Final [place] Source: US <20 weeks Gestational age: 38 Weeks and 0 Days History of this : This is a 34 year-old, 2 para 1 at 38 weeks gestation with EDC of 06/13/2019 by last menstrual period confirmed by first trimester ultrasound for induction of labor. Her has been complicated to date by gestational diabetes, has been on insulin, she has gestational hypertension, and also velamentous cord insertion. Allergies No Known Allergies Allergy (Verified 05/30/19 07:19) Home Medications: Home Medications Cholecalciferol (Vitamin D3) [Vitamin D3] 2,000 unit PO DAILY 07/26/17 Vitamins 1 tab PO DAILY 07/26/17 Insulin NPH Human Isophane [Novolin N] 14 units SQ QHS 05/15/19 Smoking Status: Never smoker Alcohol: None Number of Fetus(es): 1 NST - FHR Rate Baby A Baseline: Normal Variability:: Moderate Accelerations:: 15 x 15 Decelerations:: None NST Reactive:: Yes FHR Category:: Category I Uterine Activity:: Irregular contractions History Past Pregnancies: Past Pregnancies Delivery Date Name GA/ Weeks Outcome Route Wt Infant Sex Labor Length Anesthesia Delivery Location Provider FOB Expected Infant Delivery Method: Spontaneous Vaginal Review of Systems Constitutional: Denies: Chills, Fever Eyes: Denies: Blurred vision Cardiovascular: Denies: Chest Pain Respiratory: Denies: Cough, Shortness of Breath Gastrointestinal: Denies: Abdominal Pain Genitourinary: Denies: Dysuria Skin: Denies: Rash Neurological: Denies: Blurred vision, Double vision, Slurred speech, Headaches Physical Exam General: Alert, Cooperative, No apparent distress Cardiovascular: Regular rate Lungs: Normal air movement Abdomen: Soft, Non Tender, Gravid, Appropriate for Gestational Age Extremities:: Deep tendon reflexes - 2 Neurological: Negative for: Clonus PROPERTY UTILIZATION OFFICER: Normal external genitalia Estimated gestational size: Appropriate for gestational size Presentation: Cephalic Cervix Dilation (cm): 1 - medium consistency Station: -3 Effacement (%): 60 - mid position Assessment/Plan This is a 34 year-old, 2 para 1 at 8 weeks gestation being induced for insulin controlled diabetes and gestational hypertension. Risk benefits and alternatives to induction labor have been discussed with patient, her questions were answered to her satisfaction she desires to proceed. Consent was signed in the office. Some a weight is less than 4500 g clinically, pelvis is clinically adequate to expect vaginal delivery. May have epidural, nitrous oxide or IV pain medications as needed and indicated in labor. Will induce with Pitocin, artificial rupture membranes and Fonseca induction. Seizure note: Fonseca catheter was placed over stylette into the internal cervical loss without difficulty. Balloon was inflated to 30 cc and placement over internal loss was confirmed. Patient and fetus tolerated the procedure well.
[2019-05-30 10:01] LABS: Bedside Glucose 101 mg/dL (70-110)
[2019-05-30 12:06] LABS: Bedside Glucose 75 mg/dL (70-110)
[2019-05-30] MEDS: Lactated Ringers 500 ML 999 ML IV (12:10)
[2019-05-30] MEDS: fentaNYL-bupivacaine (epidural) 100 ML BAG EPIDURAL (12:47)
[2019-05-30 13:05] LABS: Bedside Glucose 87 mg/dL (70-110)
[2019-05-30 14:31] LABS: Bedside Glucose 88 mg/dL (70-110)
[2019-05-30 15:21] LABS: Bedside Glucose 73 mg/dL (70-110)
[2019-05-30 16:30] LABS: Bedside Glucose 79 mg/dL (70-110)
[2019-05-30 17:11] LABS: Bedside Glucose 84 mg/dL (70-110)
[2019-05-30] MEDS: Oxytocin 30 units/NS 500 ml 30 UNITS/500 ML IV.SOLN 334 UNITS IV (17:29)
--- NOTE | 2019-05-30 17:41 | PCM.OPRPT ---
Vaginal Delivery Maternal Presentation: Medically Indicated Induction Method of Induction: Pitocin, Fonseca Bulb, Amniotomy Medical Reason for Induction: Gestational Hypertension Amniotic Membrane Rupture Type: Artificial Amniotic Fluid Description: Clear Final [place]: 06/13/19 Final [place] Source: US <20 weeks Gestational age: 38 Weeks and 0 Days Date of Procedure: 05/30/19 Pre-Operative Diagnosis: labor Post-Operative Diagnosis: labor Surgery/ Procedure Performed: Spontaneous Vaginal Delivery Anesthesiologist: Tc Ennis Type of Anesthesia: Epidural Description of Procedure: A vigorous male infant was delivered GRACIELA over a second-degree perineal laceration. A loose nuchal cord ?1 was easily reduced. The remainder the was delivered with maternal pushing and gentle traction only in less than 15 seconds. The Pitocin infusion was initiated for active management of the third stage. The cord was clamped and cut after 1 minute. The infant was attended to by the waiting nursing staff. The placenta was delivered spontaneously and intact. The cervix and vagina were intact. The second-degree perineal laceration was repaired with 3-0 Vicryl suture in a running standard fashion. Sponge and needle counts were correct. A vaginal sweep was completed by me. Presentation: GRACIELA Placental Delivery Description: Spontaneous Placenta Disposition: [facility] Cord Vessel Description: 3 Vessels Nuchal Cord Compression: Without compression Cord Entanglement: Around neck x 1, loose Drain: Fonseca to straight drain Estimated Blood Loss: 300 A gender: Male (1 minute): 8 (5 minute): 9 Episiotomy Description: None Laceration: 2nd degree Medications given after delivery: IV Pitocin
[2019-05-30 18:41] LABS: Bedside Glucose 82 mg/dL (70-110)
[2019-05-30 19:45] VITALS: BP 150/81; PULSE 89; RESP 18; TEMP 37.4
[2019-05-30 20:00] VITALS: BP 137/77; PULSE 85
--- NOTE | 2019-05-30 20:12 | NURSING ---
1945-pt noted to have reddened areas to abd x5- pt had novi monitor on while in labor for a while.
[2019-05-30] MEDS: 0.9% Saline Lock 10 ML Syringe IV (20:50)
--- NOTE | 2019-05-30 21:00 | NURSING ---
this RN received report from mendel SWARTZ after pt recovery completed. this RN to assume care of pt at this time.
[2019-05-30 23:39] VITALS: BP 138/79; PULSE 90; RESP 16; TEMP 36.7
[2019-05-31 03:55] VITALS: BP 135/82; PULSE 89; RESP 16; TEMP 37.1
[2019-05-31 04:36] LABS: Bedside Glucose 82 mg/dL (70-110)
[2019-05-31 07:53] VITALS: BP 135/84; PULSE 83; RESP 14; TEMP 37.2
[2019-05-31] MEDS: Naproxen 250 MG Tablet 500 MG PO (08:05)
--- NOTE | 2019-05-31 08:35 | PCM.PN.OB ---
Subjective: Pain well controlled. Average lochia. No headache or visual changes. - Physical Exam Vitals/I&O's: Vital Signs Temp Pulse Resp BP 98.9 F 83 14 135/84 H 05/31/19 07:53 05/31/19 07:53 05/31/19 07:53 05/31/19 07:53 Oxygen Delivery Method Room Air Weight: 119.3 kg Body Mass Index (BMI) 42.4 Intake and Output for Last 24 Hours 05/29/19 05/30/19 05/31/19 23:59 23:59 23:59 Intake Total 2044.94 / 2044.94 1000 / 1000 Output Total 450 / 450 800 / 800 Balance 1594.94 / 1594.94 200 / 200 General: Alert, Cooperative, No apparent distress Laboratory Results 05/30/19 07:35: Blood Type A POSITIVE, Antibody Screen NEGATIVE 05/30/19 09:09: POC Glucose 103 05/30/19 09:57: POC Glucose 101 05/30/19 11:54: POC Glucose 75 05/30/19 13:00: POC Glucose 87 05/30/19 14:01: POC Glucose 88 05/30/19 15:16: POC Glucose 73 05/30/19 16:12: POC Glucose 79 05/30/19 17:04: POC Glucose 84 05/30/19 18:17: POC Glucose 82 05/31/19 04:20: POC Glucose 82 Current Medications Acetaminophen (Tylenol) 1,000 mg PO Q8H PRN PRN PRN Reason: Pain Score 1-3/10 Bisacodyl (Dulcolax) 10 mg RECTAL UD PRN PRN Reason: If no BM Dibucaine (Dibucaine) 1 applic TOPICAL TID PRN PRN; Protocol PRN Reason: Discomfort Glucagon () 1 mg IM .X1 PRN PRN Reason: Hypoglycemia Hydrocortisone (Hytone) 1 applic TOPICAL TID PRN PRN; Protocol PRN Reason: Discomfort Dextrose (Dextrose 10%-Water) 250 mls @ 999 mls/hr IV X1 PRN; Protocol PRN Reason: HYPOGLYCEMIA Methylergonovine Maleate (Methergine) 0.2 mg IM X1 PRN PRN Reason: Excess bleeding/uterine atony Naproxen (Naprosyn) 500 mg PO Q8H PRN PRN PRN Reason: Pain Score 1-3/10 Last Admin: 05/31/19 08:05 Dose: 500 mg Documented by: Ondansetron HCl (Zofran) 4 mg IV Q4H PRN PRN PRN Reason: Nausea Prochlorperazine Edisylate (Compazine Iv) 10 mg IV Q6H PRN PRN PRN Reason: NAUSEA/VOMITING Senna/Docusate Sodium (Senokot-S, Randee-Colace) 1 - 2 tablet PO DAILY PRN PRN PRN Reason: Constipation Simethicone (Mylicon) 80 mg PO PCHS PRN PRN Reason: Indigestion/Stomach pain Sodium Chloride () 5 - 15 ml IV UD PRN PRN Reason: SALINE FLUSH Last Admin: 05/30/19 20:50 Dose: 10 ml Documented by: Medical Necessity - Tobacco Use Smoking Status: Never smoker Assessment/Plan Postoperative day #1 status post vaginal delivery. Patient is doing well. is doing well. Monitor blood pressures. Likely discharge home tomorrow.
[2019-05-31 11:28] VITALS: BP 124/77; PULSE 80; RESP 14; TEMP 36.7
[2019-05-31 15:43] VITALS: BP 117/77; PULSE 80; RESP 14; TEMP 37.2
[2019-05-31 20:40] VITALS: BP 126/78; PULSE 85; RESP 18; TEMP 37.2
[2019-06-01 01:24] VITALS: BP 137/77; RESP 16; TEMP 37.2
--- NOTE | 2019-06-01 05:30 | NURSING ---
Report received from Leticia SWARTZ, taking over pt and care at this time.
[2019-06-01 07:32] VITALS: BP 140/73; PULSE 79; RESP 14; TEMP 36.9
--- NOTE | 2019-06-01 08:32 | PCM.PN.OB ---
Subjective: Pain well controlled. Average lochia. Denies headache or visual changes. Denies epigastric pain. - Physical Exam Vitals/I&O's: Vital Signs Temp Pulse Resp BP 98.4 F 79 14 140/73 H 06/01/19 07:32 06/01/19 07:32 06/01/19 07:32 06/01/19 07:32 Oxygen Delivery Method Room Air Weight: 119.3 kg Body Mass Index (BMI) 42.4 Intake and Output for Last 24 Hours 05/30/19 05/31/19 06/01/19 23:59 23:59 23:59 Intake Total 2044.94 / 2044.94 1000 / 1000 Output Total 450 / 450 800 / 800 Balance 1594.94 / 1594.94 200 / 200 General: Alert, Cooperative, No apparent distress Extremities: Edema - 1+, - - 2+ DTRs, no clonus Current Medications Acetaminophen (Tylenol) 1,000 mg PO Q8H PRN PRN PRN Reason: Pain Score 1-3/10 Bisacodyl (Dulcolax) 10 mg RECTAL UD PRN PRN Reason: If no BM Dibucaine (Dibucaine) 1 applic TOPICAL TID PRN PRN; Protocol PRN Reason: Discomfort Glucagon () 1 mg IM .X1 PRN PRN Reason: Hypoglycemia Hydrocortisone (Hytone) 1 applic TOPICAL TID PRN PRN; Protocol PRN Reason: Discomfort Dextrose (Dextrose 10%-Water) 250 mls @ 999 mls/hr IV X1 PRN; Protocol PRN Reason: HYPOGLYCEMIA Methylergonovine Maleate (Methergine) 0.2 mg IM X1 PRN PRN Reason: Excess bleeding/uterine atony Naproxen (Naprosyn) 500 mg PO Q8H PRN PRN PRN Reason: Pain Score 1-3/10 Last Admin: 05/31/19 08:05 Dose: 500 mg Documented by: Ondansetron HCl (Zofran) 4 mg IV Q4H PRN PRN PRN Reason: Nausea Prochlorperazine Edisylate (Compazine Iv) 10 mg IV Q6H PRN PRN PRN Reason: NAUSEA/VOMITING Senna/Docusate Sodium (Senokot-S, Randee-Colace) 1 - 2 tablet PO DAILY PRN PRN PRN Reason: Constipation Simethicone (Mylicon) 80 mg PO PCHS PRN PRN Reason: Indigestion/Stomach pain Sodium Chloride () 5 - 15 ml IV UD PRN PRN Reason: SALINE FLUSH Last Admin: 05/30/19 20:50 Dose: 10 ml Documented by: Medical Necessity - Tobacco Use Smoking Status: Never smoker Assessment/Plan day #2 status post vaginal delivery. Mildly elevated blood pressures consistent with gestational hypertension. Will monitor for now. Discharge home and follow-up in the office within 1 week for blood pressure check or as needed. Call or return if any symptoms of preeclampsia. is breast-feeding and doing well
--- NOTE | 2019-06-01 08:33 | DCINST_ITS ---
Discharge Diet: No Restrictions Discharge Activity: Return to Normal Activity, May not drive while taking narcotic pain medications., May Shower May resume sexual activity in: 4-6 weeks Additional Activity Instructions:: Nothing in the vagina for 4-6 weeks. You may return to work/school in 6 weeks. Call your doctor if your incision/area has: Continuous Slow Oozing, Sudden Increased Bleeding, Increased Pain/ Swelling, Increased Redness, Foul Smelling Discharge Additional Instructions: If you experience any of the following, contact your healthcare provider. * Bleeding that soaks a pad every hour for 2 hours * Fever 100.4 or higher * Unrelieved incision or abdominal pain * Swelling, redness, discharge or bleeding from your incision or episiotomy site * Your incision begins to separate * Problems urinating (including inability to urinate or burning while urinating). * Visual changes * Severe headache * Flu-like symptoms * Pain or redness in one of both of your breasts * Pain, warmth, tenderness or swelling in your legs, especially the calf area * Frequent nausea and vomiting * Symptoms of depression or anxiety If you experience any of the following, call 911 or go to the nearest Emergency Room. * Chest pain * Problems breathing * Seizure activity * Partial or complete paralysis of a body part, slurred speech, weakness or drooping of the face, or a sudden inability to walk or hold your balance Allergies/Adverse Reactions: Allergies No Known Allergies Allergy (Verified 05/30/19 07:19) Medications to take at Discharge Cholecalciferol (Vitamin D3) [Vitamin D3] 2,000 unit PO DAILY 07/26/17 Vitamins 1 tab PO DAILY 07/26/17 Please Follow Up With: Rani eKller MD - [phone] When: Call to make an appointment with your doctor's office in 1 and 6 weeks Primary Care Physician: Guillermo Tavares [Primary Care Provider] - Test Results: Test results from this visit will be discussed in further detail at your follow- up appointment, if applicable.
--- NOTE | 2019-06-01 08:33 | PCM.DCVAG ---
Discharge Diet: No Restrictions Discharge Activity: Return to Normal Activity, May not drive while taking narcotic pain medications., May Shower May resume sexual activity in: 4-6 weeks Additional Activity Instructions:: Nothing in the vagina for 4-6 weeks. You may return to work/school in 6 weeks. Call your doctor if your incision/area has: Continuous Slow Oozing, Sudden Increased Bleeding, Increased Pain/ Swelling, Increased Redness, Foul Smelling Discharge Additional Instructions: If you experience any of the following, contact your healthcare provider. Bleeding that soaks a pad every hour for 2 hours Fever 100.4 or higher Unrelieved incision or abdominal pain Swelling, redness, discharge or bleeding from your incision or episiotomy site Your incision begins to separate Problems urinating (including inability to urinate or burning while urinating). Visual changes Severe headache Flu-like symptoms Pain or redness in one of both of your breasts Pain, warmth, tenderness or swelling in your legs, especially the calf area Frequent nausea and vomiting Symptoms of depression or anxiety If you experience any of the following, call 911 or go to the nearest Emergency Room. Chest pain Problems breathing Seizure activity Partial or complete paralysis of a body part, slurred speech, weakness or drooping of the face, or a sudden inability to walk or hold your balance Allergies/Adverse Reactions: Allergies No Known Allergies Allergy (Verified 05/30/19 07:19) Medications to take at Discharge Cholecalciferol (Vitamin D3) [Vitamin D3] 2,000 unit PO DAILY 07/26/17 Vitamins 1 tab PO DAILY 07/26/17 Please Follow Up With: Rani Keller MD - [phone] When: Call to make an appointment with your doctor's office in 1 and 6 weeks Primary Care Physician: Guillermo Tavares [Primary Care Provider] - Test Results: Test results from this visit will be discussed in further detail at your follow-up appointment, if applicable.
[2019-06-01 11:35] VITALS: BP 145/101; PULSE 87; RESP 14; TEMP 36.8
--- NOTE | 2019-06-01 11:46 | NURSING ---
notified dr black of elevated BP upon d/c. plan is to have pt check bp at home twice a day and pt to call dr black in office tomorrow to report trends. pt verbalized understanding.
== END 2019-06-01 11:55 | disposition home or self-care (01) | DRG 807 ==
PROVIDERS: Admitting Provider Obstetrics & Gynecology; PCP Family Medicine; Visit Provider Obstetrics & Gynecology
DX: O13.4 Gestational [pregnancy-induced] hypertension without significant proteinuria, complicating childbirth (principal); Z37.0 Single live birth; O24.424 Gestational diabetes mellitus in childbirth, insulin controlled; O69.81X0 Labor and delivery complicated by cord around neck, without compression, not applicable or unspecified; O70.1 Second degree perineal laceration during delivery; Z3A.38 38 weeks gestation of pregnancy; Z79.4 Long term (current) use of insulin
CPT/HCPCS: 59025; 59050; 82962; 85025; 86850; 86900; 86901; 99218; J7120; A4216; G0378

== ENCOUNTER 2019-06-01 17:00 | Outpatient (CLI) | payer OTHER, SELFPAY ==
[2019-06-01 17:19] VITALS: BMI 39.6
[2019-06-01 17:44] LABS: Hematocrit 32.8 % (37-47); Mean Corp Hgb Conc 33.5 g/dL (32-36); Mean Corpuscular Hgb 30.3 pg (27.0-32.0); Mean Corpuscular Volume 90.4 fL (81-99); Mean Platelet Vol. 9.7 fl (6.2-12.0); Platelet Count 140 K/mm3 (150-450); RBC Distribution Width CV 14.6 % (11.6-14.6); RBC Distribution Width SD 47.5 fl (35.1-43.9); Red Blood Count 3.63 M/mm3 (4.2-5.4); White Blood Count 7.4 K/mm3 (4.4-11.0)
[2019-06-01 18:01] LABS: Anion Gap 7 (5-15); BUN 11 mg/dL (7-18); BUN/Creat Ratio 13.2 RATIO (10-20); Calcium,Total 8.8 mg/dL (8.5-10.1); Chloride 112 mmol/L (98-107); Creatinine, Serum 0.83 mg/dL (0.55-1.02); EST Glomerular Filtration Rate 84 mL/min (>60); Est Glom Filt Rate - Afr Amer 101 mL/min (>60); Estimated Creatinine Clearance 90.25 ml/min; Glucose 114 mg/dL (74-106); Sodium Level 144 mmol/L (136-145)
[2019-06-01] MEDS: Labetalol 200 MG Tablet PO (18:36)
--- NOTE | 2019-06-01 19:13 | NURSING ---
Nurse talked with Dr Blandon earlier and got an order to labetalol 200mg po now and then to repeat pressure in approx 20-30 minutes. At the time to call her again pressures were reviewed and ok'd for discharge. pt to call in morning to schedule a nurse blood pressure check. Pre E symptoms and sheet reviewed and given. pt voices understanding.
--- NOTE | 2019-06-03 08:45 | OB.TRI.NOTE ---
- Problem List (1) hypertension Status: Acute History of Present Illness Date of Service: 06/01/19 Was patient seen by the physician?: No Reason For Visit: READMIT Final [place] Source: [place] <20 weeks History of Present Illness: Pt was discharged home. Checked her BP at home and it was in the severe range. Presents for BP monitoring and r/o pre-e. Allergies No Known Allergies Allergy (Verified 05/30/19 07:19) Laboratory Studies: Laboratory Tests 06/01/19 06/01/19 Range/Units 17:35 17:35 WBC 7.4 (4.4-11.0) K/mm3 RBC 3.63 L (4.2-5.4) M/mm3 Hgb 11.0 L (12.0-15.0) g/dL Hct 32.8 L (37-47) % MCV 90.4 (81-99) fL MCH 30.3 (27.0-32.0) pg MCHC 33.5 (32-36) g/dL RDW Std Deviation 47.5 H (35.1-43.9) fl RDW Coeff of Delfina 14.6 (11.6-14.6) % Plt Count 140 L (150-450) K/mm3 MPV 9.7 (6.2-12.0) fl Sodium 144 (136-145) mmol/L Potassium 4.0 (3.5-5.1) mmol/L Chloride 112 H (98-107) mmol/L Carbon Dioxide 25.0 (21.0-32.0) mmol/L Anion Gap 7 (5-15) BUN 11 (7-18) mg/dL Creatinine 0.83 (0.55-1.02) mg/dL Estim Creat Clear Calc 90.25 ml/min Est GFR (MDRD) Af Amer 101 (>60) mL/min Est GFR (MDRD) Non-Af 84 (>60) mL/min BUN/Creatinine Ratio 13.2 (10-20) RATIO Glucose 114 H (74-106) mg/dL Calcium 8.8 (8.5-10.1) mg/dL Impression/Plan Pre-e labs WNL BP's 150s/90s Started Labetalol 200mg BID Reviewed chart, likely cHTN vs gHTN No pre-e symptoms D/c home w/ f/u in the office
== END 2019-06-01 19:20 | disposition home or self-care (01) ==
LOC: WPOUT 17:16 → OBT 17:17
PROVIDERS: PCP Family Medicine; Referring Provider Obstetrics & Gynecology; Visit Provider Obstetrics & Gynecology
DX: O16.5 Unspecified maternal hypertension, complicating the puerperium (principal)
CPT/HCPCS: 36415; 80048; 85027; 99218; G0378

== ENCOUNTER → 2019-06-12 19:55 | Outpatient (CLI) | payer OTHER, SELFPAY ==
[2019-06-01 17:19] VITALS: BMI 39.6
== END ==
PROVIDERS: PCP Family Medicine; Referring Provider Obstetrics & Gynecology; Visit Provider Obstetrics & Gynecology
DX: P92.5 Neonatal difficulty in feeding at breast (principal); O92.6 Galactorrhea
CPT/HCPCS: 96158; 96159

== ENCOUNTER → 2020-06-12 15:19 | Outpatient (CLI) | payer OTHER, SELFPAY ==
[2020-06-12 15:34] LABS: Mucous, Urine 0 SEEN /hpf (<or=2+); Red Blood Cells-Urine 0 SEEN /hpf (0-5)
--- NOTE | 2020-06-12 15:53 | RAD_ITS ---
STUDY: X-RAY CHEST REASON FOR EXAM: Female, 35 years old. NO CHEST COMPLAINTS. CHECKING FOR SARCOMA. TECHNIQUE: PA and lateral COMPARISON: None. FINDINGS: The lungs are clear and expanded. There is no demonstrated pleural abnormality. Normal size heart. Normal mediastinum and cyndee. Normal visualized pulmonary arteries. Normal visualized aortic arch and descending thoracic aorta. Normal visualized thoracic spine. Normal visualized ribs, clavicles, and shoulders. There is no demonstrated abnormality of the visualized soft tissue structures of the upper abdomen. RAD/Chest PA and Lateral IMPRESSION: Normal x-ray examination of the chest. Electronically Signed: Juan Booker MD at 16:07 EST , Service support ,
[2020-06-12 16:20] LABS: Color, Urine Yellow (Yellow); Glucose, Dipstick Normal (Normal); Ketone-Dipstick Negative (Negative); Leukocyte Esterase-Dipstick 25 /ul (Negative); Nitrite-Dipstick Negative (Negative); Occult Blood-Urine Negative /ul (Negative); Protein-Dipstick Negative (Negative); Specific Gravity, Urine 1.015 (1.002-1.030); Urine Bilirubin Dipstick Negative (Negative); Urine Clarity Sl. Cloudy (Clear); Urine Urobilinogen Normal (Normal)
[2020-06-12 16:29] LABS: Erythrocyte Sedimentation Rate 8 mm/hr (0-30)
[2020-06-12 16:36] LABS: Squamous Epithelial Cells - UA 0-5 SEEN /hpf (5-10); White Blood Cells 0-5 SEEN /hpf (0-5)
[2020-06-12 16:37] LABS: Bacteria RARE /hpf (None Seen)
[2020-06-12 17:25] LABS: CRP 7.85 mg/L (0.0-3.0)
[2020-06-21 14:09] LABS: ASO Titer 33.4 IU/mL (0.0-200.0); Angiotensin Convert Enzyme 29 U/L (14-82); QNTFERON TB Mitogen Value > 10.00 IU/mL (.); QNTFERON TB Nil Value 0.09 IU/mL (.); QNTFERON TB1+ Ag Value 0.06 IU/mL (.); QNTFERON TB2+ Ag Value 0.07 IU/mL (.)
[2020-06-21 16:02] LABS: HLA B27 Negative (.); QNTIFERON TB Positive Criteria Negative (Negative); Treponema palladium Ab (FTA) Non Reactive (Non Reactive)
== END ==
PROVIDERS: PCP Family Medicine; Referring Provider Ophthalmology; Visit Provider Ophthalmology
DX: H20.13 Chronic iridocyclitis, bilateral (principal)
CPT/HCPCS: 36415; 71046; 81001; 81374; 82164; 85652; 86060; 86140; 86480; 86780